=== PATIENT | male | born 1965 | race Caucasian/White ===

== ENCOUNTER 2017-02-01 20:33 | Emergency (ER) | payer MEDICAID, OTHER ==
[~2017-02-01] VITALS: Ht 177.8 cm; Wt 98.0 kg
[~2017-02-01 20:33] MED LIST: CHLO5CAP2 PO; FOLI-49 PO; HYDR-906 PO; LEVE750T70 PO; MULT1CAP20 PO; NADO20TA PO; PANT40TA3 PO; THIA100T10 PO; UDMOM PO
[2017-02-01 20:36] VITALS: Ht 177.8 cm; Wt 98.0 kg
[2017-02-02] MEDS ORDERED: ONDANSETRON 4 MG INJ IV STA (01:13)
[2017-02-02] MEDS ORDERED: FAMOTIDINE 20 MG INJ IV STA (01:13)
[2017-02-02] MEDS ORDERED: SOD CHLORIDE 0.9% 1,000 ML IV STA (01:13)
[2017-02-02 01:51] LABS: ABNORMAL IP MESSAGE 1; BASOPHILS % 0.3 % (0.0-2.0); EOSINOPHILS # 0.1 10^3/ul (0.0-0.5); EOSINOPHILS % 0.6 % (0.0-7.0); HEMOGLOBIN 9.3 g/dl (14.0-18.0); LYMPHOCYTES % 29.8 % (15.0-51.0); MEAN CORPUSCULAR HEMOGLOBIN 26.7 pg (29.0-33.0); MEAN CORPUSCULAR HGB CONC 33.2 g/dl (32.0-37.0); MEAN CORPUSCULAR VOLUME 80.5 fl (82.0-101.0); MEAN PLATELET VOLUME 10.1 fl (7.4-10.4); MONOCYTE # 0.9 10^3/ul (0.3-0.9); MONOCYTES % 8.5 % (0.0-11.0); NEUTROPHIL # 6.1 10^3/ul (1.6-7.5); NEUTROPHILS % 60.4 % (39.0-77.0); PLATELET COUNT 74 10^3/UL (140-415); POSITIVE DIFF @See below; RED BLOOD COUNT 3.48 10^6/ul (4.70-6.10); RED CELL DISTRIBUTION WIDTH 16.6 % (11.5-14.5); WHITE BLOOD COUNT 10.1 10^3/ul (4.8-10.8)
[2017-02-02 02:12] LABS: ALBUMIN 3.7 g/dl (3.3-4.9); ALBUMIN/GLOBULIN RATIO 0.88; BILIRUBIN,DIRECT 0.1 mg/dl (0.00-0.20); BILIRUBIN,INDIRECT 1.1 mg/dl (0-1.1); BILIRUBIN,TOTAL 1.2 mg/dl (0.2-1.3); CREATININE 0.56 mg/dl (0.61-1.24); POTASSIUM 3.8 mmol/L (3.5-5.1); TOTAL PROTEIN 7.9 g/dl (6.1-8.1)
[2017-02-02] MEDS ORDERED: ONDA4TAB14 PO (02:49)
[2017-02-02 03:02] VITALS: BP 129/65; PULSE 113; RESP 16; TEMP 98.3
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
== END 2017-02-02 03:03 | disposition home or self-care (01) ==
LOC: E/R 20:33
DX: F10.929 Alcohol use, unspecified with intoxication, unspecified (principal); R10.9 Unspecified abdominal pain; R11.0 Nausea; Z87.891 Personal history of nicotine dependence
CPT/HCPCS: 80053; 83690; 85025; J2405; J7030; Z7610; 36415; 96374; 96375

== ENCOUNTER 2017-04-01 15:39 | Emergency (ER) | payer OTHER ==
[~2017-04-01] VITALS: Ht 172.7 cm; Wt 70.0 kg
[~2017-04-01 15:39] MED LIST changes: -CHLO5CAP2 PO; -FOLI-49 PO; -LEVE750T70 PO; -NADO20TA PO; +ONDA4TAB14 PO
[2017-04-01 15:44] VITALS: Ht 172.7 cm; Wt 70.0 kg
[2017-04-01] MEDS ORDERED: ONDANSETRON 4 MG INJ IV STA (16:28)
[2017-04-01] MEDS ORDERED: SOD CHLORIDE 0.9% 1,000 ML IV STA (16:28)
[2017-04-01] MEDS ORDERED: LEVETIRACETAM 1000 MG (PMX) 100 ML IVPB ONE (16:30)
[2017-04-01 16:51] LABS: ABNORMAL IP MESSAGE 1; HEMATOCRIT 29.9 % (42.0-52.0); HEMOGLOBIN 9.8 g/dl (14.0-18.0); MEAN CORPUSCULAR HEMOGLOBIN 28.6 pg (29.0-33.0); MEAN CORPUSCULAR HGB CONC 32.8 g/dl (32.0-37.0); MEAN CORPUSCULAR VOLUME 87.2 fl (82.0-101.0); MEAN PLATELET VOLUME 10.9 fl (7.4-10.4); PLATELET COUNT 43 10^3/UL (140-415); POSITIVE DIFF @See below; RED BLOOD COUNT 3.43 10^6/ul (4.70-6.10); RED CELL DISTRIBUTION WIDTH 21.7 % (11.5-14.5); WHITE BLOOD COUNT 5.2 10^3/ul (4.8-10.8)
[2017-04-01] MEDS ORDERED: LEVETIRACETAM 1000 MG (PMX) 100 ML IVPB SCH (17:00)
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
[2017-04-01] MEDS ORDERED: LEVE-5 PO (17:02)
[2017-04-01 17:11] LABS: ALBUMIN 3.1 g/dl (3.3-4.9); ALBUMIN/GLOBULIN RATIO 0.73; BILIRUBIN,INDIRECT 0.9 mg/dl (0-1.1); BILIRUBIN,TOTAL 0.9 mg/dl (0.2-1.3); CALCIUM 7.9 mg/dl (8.4-10.2); CREATININE 0.57 mg/dl (0.61-1.24); POTASSIUM 3.4 mmol/L (3.5-5.1); TOTAL PROTEIN 7.3 g/dl (6.1-8.1)
[2017-04-01 17:15] LABS: EOSINOPHILS % (M) 1 % (0-7); MONOCYTES % (M) 3 % (0-11); PLATELET ESTIMATE DECREASED
[2017-04-01 20:07] VITALS: BP 143/75; PULSE 99; RESP 20; TEMP 98.6
[2017-04-05 17:31] LABS: PATH REVIEW CH
== END 2017-04-01 20:11 | disposition home or self-care (01) ==
LOC: E/R 15:39
DX: F10.129 Alcohol abuse with intoxication, unspecified (principal); G40.909 Epilepsy, unspecified, not intractable, without status epilepticus; I10 Essential (primary) hypertension
CPT/HCPCS: 36415; 80053; 80306; 83690; 85025; 96374; 96375; J1953; J2405; J7030; Z7502